=== PATIENT | female | born 1960 | race Caucasian/White ===

== ENCOUNTER 2018-10-31 23:14 | Emergency (ER) | payer BC, OTHER ==
[2018-10-31] MEDS ORDERED: DIPHENHYDRAMINE HCL 25 MG CAPSULE PO ONE (23:39)
--- NOTE | 2018-10-31 23:39 | Emergency Department Record ---
Anxiety - General Stated Complaint: ANXIETY Time Seen by Provider: 10/31/18 23:15 Source: Patient, Family Mode of Arrival: Ambulatory Limitations: No limitations - History of Present Illness Initial Comments: 58 yo female presents with anxiety and insomnia. She has several life stresses and has not been able to sleep. She denies any recent medical illness or concerns. She reports she is concerned about her daughters safety. Her daughter is 15 years old dating a fellow high school student who is 18. On 's day the mother reports that the boyfriend made general statement about committing suicide with one or both of them. The mother states the children where in the back seat of the parent's car and the male made a gun with his fingers and stated that if that happens "you can be together forever". The mother and father are concerned for her daughter and the young makeda safety. The mother states she is here tonight because she is anxious and has not been able to sleep for several days. MD Complaint: Anxiety, Other (Insomnia) -: Days(s) Symptoms: Other Place: Home Previous History of Same: No Severity: Moderate Quality: Constant Provoking factors: Emotional stress Improves With: Nothing Worsens With: Thinking about event Associated symptoms: Denies other symptoms - Related Data Allergies/Adverse Reactions: Allergies Allergy/AdvReac Type Severity Reaction Status Date / Time penicillin V Allergy Severe HIVES Unverified 03/17/16 12:31 sulfamethoxazole Allergy Intermediate RASH Unverified 03/17/16 12:31 [From Bactrim] trimethoprim [From Bactrim] Allergy Intermediate RASH Unverified 03/17/16 12:31 Review of Systems Constitutional: Denies: Chills, Fever, Malaise, Weakness Eyes: Denies: Eye discharge, Eye pain, Photophobia, Vision change ENT: Denies: Congestion, Throat pain Respiratory: Denies: Cough Cardiovascular: Denies: Chest pain, Palpitations, Syncope Endocrine: Reports: Fatigue Gastrointestinal: Denies: Abdominal pain, Diarrhea, Nausea, Vomiting Genitourinary: Denies: Dysuria Musculoskeletal: Denies: Arthralgia, Back pain, Myalgia Skin: Denies: Bruising, Change in color, Rash Neurological: Denies: Headache Psychiatric: Reports: As per HPI, Anxiety Hematological/Lymphatic: Denies: Easy bleeding, Easy bruising Physical Exam - General General Appearance: Alert, Oriented x3, Cooperative, No acute distress, Anxious - Head Head exam: Normal inspection - Eye Eye exam: Normal appearance. negative: Conjunctival injection - ENT ENT exam: Normal exam Ear exam: Normal external inspection Nasal Exam: Normal inspection Mouth exam: Normal external inspection - Neck Neck exam: Normal inspection - Respiratory Respiratory exam: Normal lung sounds bilaterally. negative: Respiratory distress - Cardiovascular Cardiovascular Exam: Regular rate, Normal rhythm, Normal heart sounds - Neurological Neurological exam: Alert, Normal gait, Oriented X3. negative: Abnormal gait, Altered - Psychiatric Psychiatric exam: Anxious. negative: Depressed, Flat affect, Homicidal ideation , Suicidal ideation - Skin Skin exam: Dry, Intact, Normal color, Warm Course - Reevaluation(s) Reevaluation #1: The patient expressed concerns about the safety of her daughter and her daughter 's boyfriend I explained that law enforcement and CPS will be notified of the concerns whenever if becomes known that potential danger is possible She will be given a low dose Ativan to help with her anxiety this evening as well I strongly encouraged her to call her PCP to help with this ongoing stressful situation and get referrals for counseling as well. 10/31/18 23:47 10/31/18 23:49 [facility] department was notified. They instructed the patient must give the statement from home due to jurisdiction of the incident. 11/01/18 00:00 CPS reporting form was filled out by the RN and myself. 11/01/18 00:28 RN phoned in the report to CPS Disposition Disposition: Discharge Clinical Impression: Anxiety Insomnia Qualifiers: Insomnia type: unspecified Qualified Code(s): G47.00 - Insomnia, unspecified Disposition: Home, Self-Care Condition: (1) Good Instructions: Anxiety (ED) Additional Instructions: Call your doctor for the next available follow up appointment to get a referral to help you with the stress you are going through Return to the ER for a recheck if worse, any new concerns or questions You may take 25mg 30 minutes before bed time to help you sleep Review this ER visit and the tests performed with your family doctor as soon as possible You information was given to [facility]'s department. Call the number provided to given your statement to law enforcement. Given your daughter is 15 years old Child Protective Services was informed as well to ensure the safety of your child. Forms: Patient Portal Access Quality - Quality Measures Quality Measures: N/A - Blood Pressure Screening Does Patient Have Any of the Following: No Blood Pressure Classification: Pre-Hypertensive BP Reading Systolic Measurement: 123 Diastolic Measurement: 83 Screening for High Blood Pressure: < Pre-Hypertensive BP, F/U Documented > [ [id number]] Pre-Hypertensive Follow-up Interventions: Referral to alternative/primary care provider.
[2018-10-31] MEDS ORDERED: LORAZEPAM 0.5 MG TABLET PO ONE (23:41)
[2018-11-01] MEDS ORDERED: DIPHENHYDRAMINE HCL 25 MG CAPSULE PO ONE (00:35)
== END 2018-11-01 00:45 | disposition home or self-care (01) ==
LOC: ER 23:14
DX: F41.9 Anxiety disorder, unspecified (principal); F43.0 Acute stress reaction; G47.00 Insomnia, unspecified
CPT/HCPCS: 99283